=== PATIENT | male | born 1975 | race Hispanic/Latino ===

== ENCOUNTER 2019-06-28 21:57 | Emergency (ER) | payer BC ==
[2019-06-28] MEDS ORDERED: LIDOCAINE HCL 1% 20 ML VIAL ONE (22:25)
[2019-06-28] MEDS ORDERED: KETOROLAC TROMETHAMINE 60 MG/2 ML VIAL ONE (22:52)
[2019-06-28] MEDS ORDERED: CLINDAMYCIN HCL 150 MG CAP ONE (22:52)
[2019-06-28] MEDS ORDERED: HYDROCODONE/ACETAMINOPHEN 10/325 MG TAB ONE (22:53)
== END 2019-06-28 23:52 | disposition home or self-care (01) ==
LOC: EDH 21:57
DX: H60.02 Abscess of left external ear (principal); Z88.6 Allergy status to analgesic agent; Z98.890 Other specified postprocedural states
CPT/HCPCS: 69000; 96372; 99284; J1885; 10060